=== PATIENT | male | born 2000 | race Caucasian/White ===

== ENCOUNTER 2018-10-16 07:14 | Emergency (ER) | payer OTHER ==
[~2018-10-16] VITALS: Ht 182.9 cm; Wt 73.5 kg
[2018-10-16 08:16] VITALS: BP 111/72
== END 2018-10-16 08:17 | disposition home or self-care (01) ==
LOC: ER 07:14
DX: S80.212A Abrasion, left knee, initial encounter (principal); M25.562 Pain in left knee; M79.641 Pain in right hand; V49.59XA Passenger injured in collision with other motor vehicles in traffic accident, initial encounter; Y93.89 Activity, other specified; Y92.410 Unspecified street and highway as the place of occurrence of the external cause; Y99.8 Other external cause status; F17.210 Nicotine dependence, cigarettes, uncomplicated